=== PATIENT | male | born 1970 | race Caucasian/White ===

== ENCOUNTER 2018-02-17 19:11 | Emergency (ER) | payer MEDICAID, OTHER ==
[~2018-02-17] VITALS: Ht 180.3 cm; Wt 93.2 kg
[2018-02-17 19:27] VITALS: BP 164/92; PULSE 82; RESP 20; TEMP 98.2; O2SAT 99
--- NOTE | 2018-02-17 19:55 | RADRPT ---
EXAM DATE/TIME: 02/17/2018 19:38 [place] COMPARISON: No previous studies available for comparison. INDICATIONS : Cough. MEDICAL HISTORY : Hypertension. SURGICAL HISTORY : None. ENCOUNTER: Initial ACUITY: 1 day PAIN SCORE: 4/10 LOCATION: Bilateral chest FINDINGS: PA and lateral views of the chest demonstrate the lungs to be symmetrically aerated without evidence of mass, infiltrate or effusion. The cardiomediastinal contours are unremarkable. Osseous structure s are intact. CONCLUSION: No acute disease. Carlos Coburn MD on February 17, 2018 at 19:52 Board Certified Radiologist. This report was verified electronically.
[2018-02-17 20:35] VITALS: BP 180/92; PULSE 77; RESP 18; TEMP 98.4; O2SAT 99
--- NOTE | 2018-02-17 20:41 | PD ---
HPI Chief Complaint: Chest Pain Time Seen by Provider: 20:35 Travel History International Travel<30 days: No Contact w/Intl Traveler<30days: No Traveled to known affect area: No History of Present Illness HPI 47-year-old male presents to the emergency department for complaint of one-week of cough sore throat congestion and chest pain with cough. Patient recently traveled from [facility] "where everyone is sick". Patient denies any lower extremity pain or swelling. No prior history of cardiac disease or clotting disorder. Patient has been diagnosed in the past with hypertension but takes no antihypertensive medications. Patient does smoke cigarettes. Patient has no known history of diabetes. Patient states in November he had flu. Patient states cough is persistent and spastic in nature; at times he coughs so forcefully he feels like he might pass out but has had no syncope. Patient denies any phlegm production. Has had sinus pressure and drainage and recently started OTC Flonase. No prior history of bronchitis pneumonia or COPD. The patient rates his throat pain as severe 7/10 in intensity. Patient is taken no acetaminophen or ibuprofen products for pain management. Patient has used over- the-counter cough medication and cough drops such as Ricola drops. [facility] Past Medical History Narrative Medical Hypertension; tobacco use; nursing notes reviewed Diminished Hearing: No Hypertension: Yes Influenza Vaccination: No Past Surgical History Tonsillectomy: Yes Other Surgery: Yes (L middle/index finger amputation) Social History Alcohol Use: Yes (occiasionally) Tobacco Use: Yes Substance Use: No Allergies-Medications (Allergen,Severity, Reaction): Coded Allergies: No Known Drug Allergies (Verified Allergy, Unknown, 02/17/18) Reported Meds & Prescriptions Reported Meds & Active Scripts Active Norvasc (Amlodipine Besylate) 2.5 Mg Tab 2.5 Mg PO DAILY Ventolin Hfa 18 GM Inh (Albuterol Sulfate) 90 Mcg/Act Aer 2 Puff INH Q4-6H PRN Medrol Dosepak (Methylprednisolone) 4 Mg Dspk 4 Mg PO DIRECTED Per Pharmacist direction Zithromax Z-Dmitriy (Azithromycin) 250 Mg Dspk 250 Mg PO DIRECTED 500 MG (2 tabs) day 1, then 1 tab days 2-5. Review of Systems Except as stated in HPI: all other systems reviewed are Neg General / Constitutional: Positive: Chills, No: Fever HENT: Positive: Sore Throat, Congestion Cardiovascular: Positive: Chest Pain or Discomfort, No: Syncope Respiratory: Positive: Cough, Shortness of Breath, Wheezing Gastrointestinal: No: Vomiting, Abdominal Pain Genitourinary: No: Dysuria, Flank Pain Musculoskeletal: No: Myalgias, Arthralgias Skin: No Rash Neurologic: No: Weakness, Syncope Psychiatric: No: Anxiety Hematologic/Lymphatic: No: Lymph Node Enlargement Physical Exam Narrative GENERAL: Well-developed well-nourished male no acute distress or respiratory distress hypertensive SKIN: Warm and dry. HEAD: Normocephalic. EYES: No scleral icterus. No injection or drainage. ENT: Mucous membranes moist posterior pharyngeal erythema without edema; tympanic membranes no redness dullness or loss of landmarks NECK: Supple, trachea midline. No JVD or lymphadenopathy. No meningismus no nuchal rigidity CARDIOVASCULAR: Regular rate and rhythm without murmurs, gallops, or rubs. RESPIRATORY: Breath sounds equal bilaterally. No accessory muscle use. GASTROINTESTINAL: Abdomen soft, non-tender, nondistended. MUSCULOSKELETAL: No cyanosis, or edema. No calf tenderness no posterior cord negative Homans dorsalis pedis pulse 2+ to palpation bilaterally BACK: Nontender without obvious deformity. No CVA tenderness. Data Data Last Documented VS Vital Signs Date Time Temp Pulse Resp B/P (MAP) Pulse Ox O2 Delivery O2 Flow Rate FiO2 02/17/18 22:19 02/17/18 21:42 100 21 02/17/18 20:35 98.4 77 18 Room Air Orders Orders Electrocardiogram (02/17/18 19:29) Basic Metabolic Panel (Bmp) (02/17/18 19:29) Ckmb (Isoenzyme) Profile (02/17/18 19:29) Complete Blood Count With Diff (02/17/18 19:29) Magnesium (Mg) (02/17/18 19:29) Prothrombin Time / Inr (Pt) (02/17/18 19:29) Act Partial Throm Time (Ptt) (02/17/18 19:29) Troponin I (02/17/18 19:29) Chest, Pa & Lat (02/17/18 19:29) Group A Rapid Strep Screen (02/17/18 20:35) Albuterol-Ipratropium Neb (Duoneb Neb) (02/17/18 20:45) Aspirin Chew (Aspirin Chew) (02/17/18 20:45) ^ Saline Lock (02/17/18 20:35) Strep Culture (Group A) (02/17/18 20:45) CKMB (02/17/18 20:45) CKMB% (02/17/18 20:45) Ketorolac Inj (Toradol Inj) (02/17/18 22:00) Ed Discharge Order (02/17/18 22:07) Labs Laboratory Tests Test 02/17/18 20:45 White Blood Count 10.9 TH/MM3 Red Blood Count 5.01 MIL/MM3 Hemoglobin 14.5 GM/DL Hematocrit 43.3 % Mean Corpuscular Volume 86.4 FL Mean Corpuscular Hemoglobin 29.0 PG Mean Corpuscular Hemoglobin Concent 33.6 % Red Cell Distribution Width 13.2 % Platelet Count 252 TH/MM3 Mean Platelet Volume 8.6 FL Neutrophils (%) (Auto) 64.8 % Lymphocytes (%) (Auto) 23.8 % Monocytes (%) (Auto) 8.7 % Eosinophils (%) (Auto) 2.1 % Basophils (%) (Auto) 0.6 % Neutrophils # (Auto) 7.1 TH/MM3 Lymphocytes # (Auto) 2.6 TH/MM3 Monocytes # (Auto) 0.9 TH/MM3 Eosinophils # (Auto) 0.2 TH/MM3 Basophils # (Auto) 0.1 TH/MM3 CBC Comment DIFF FINAL Differential Comment Prothrombin Time 10.7 SEC Prothromb Time International Ratio 1.1 RATIO Activated Partial Thromboplast Time 28.0 SEC Blood Urea Nitrogen 19 MG/DL Creatinine 1.04 MG/DL Random Glucose 93 MG/DL Calcium Level 9.0 MG/DL Magnesium Level 2.1 MG/DL Sodium Level 138 MEQ/L Potassium Level 3.6 MEQ/L Chloride Level 103 MEQ/L Carbon Dioxide Level 26.4 MEQ/L Anion Gap 9 MEQ/L Estimat Glomerular Filtration Rate 76 ML/MIN Total Creatine Kinase 263 U/L Creatine Kinase MB 1.6 NG/ML Troponin I LESS THAN 0.02 NG/ML MDM Medical Decision Making Medical Screen Exam Complete: Yes Emergency Medical Condition: Yes Medical Record Reviewed: Yes Interpretation(s) EKG normal sinus rhythm rate 75 normal axis and intervals no acute ST elevation injury pattern or ectopy noted Last Impressions Chest X-Ray 02/17/181928 Signed Impressions: Service Date/Time: Saturday, February 17, 2018 19:38 - CONCLUSION: No acute disease. Carlos Coburn MD Last Impressions Chest X-Ray 02/17/181928 Signed Impressions: Service Date/Time: Saturday, February 17, 2018 19:38 - CONCLUSION: No acute disease. Carlos Coburn MD Vital Signs Date Time Temp Pulse Resp B/P (MAP) Pulse Ox O2 Delivery O2 Flow Rate FiO2 02/17/18 21:42 100 21 02/17/18 20:35 98.4 77 18 180/92 (121) 99 Room Air 02/17/18 20:30 88 18 99 Room Air 02/17/18 19:27 98.2 82 20 164/92 (116) 99 CBC & BMP Diagram 02/17/18 20:45 Calcium Level 9.0, Magnesium Level 2.1 CK: 263, not elevated CK-MB 1.6 not elevated; troponin less than 0.02, not elevated Differential Diagnosis Viral syndrome, pharyngitis, influenza, sinusitis, bronchitis, pneumonia, uncontrolled hypertension; also to consider ACS, PE Narrative Course EKG is sinus rhythm no acute ST elevation injury pattern or ectopy noted chest x -ray no lobar infiltrate noted; specimens collected and sent for resulting patient given DuoNeb updraft 1 Patient reports that he feels markedly improved after DuoNeb updraft 1 is aware that his strep test is negative and that values grossly within normal range; patient denies any pleuritic chest pain. Patient's had no hemoptysis. Patient states the pain is still 7/10 intensity. Patient given one-time dose of Toradol 30 mg IV; patient is stable for outpatient management. Patient will be given prescription for Norvasc for hypertension. Diagnosis Primary Impression: Acute bronchitis Qualified Codes: J20.9 - Acute bronchitis, unspecified Additional Impression: Hypertension Referrals: Primary Care Physician call for appointment Patient Instructions: General Instructions Additional Instructions: Increase fluid hydration Follow-up with primary care provider or clinic Complete course of antibiotic Use inhaler as needed for shortness of breath or for wheezing May take ibuprofen/Advil/Motrin 600 mg as often a result every 6 hours or up to maximum dose of 800 mg as often as every 8 hours as needed for pain associated inflammation or for fever 100.4F or greater avoid use of this medication while taking steroid taper May use acetaminophen/Tylenol every 4 hours for fever 100.4F or greater for minor pain Use warm salt water gargles lozenges or Chloraseptic spray for throat pain Return to the emergency department for any concerns or change in condition Take blood pressure medication as prescribed monitor blood pressure daily and follow-up with primary care provider regarding ongoing blood pressure management Med/Other Pt SpecificInfo: Prescription(s) given Scripts Amlodipine (Norvasc) 2.5 Mg Tab 2.5 MG PO DAILY for Blood Pressure Management, #30 TAB 0 Refills Prov: Nicci Márquez MD 02/17/18 Albuterol 18 GM Inh (Ventolin Hfa 18 GM Inh) 90 Mcg/Act Aer 2 PUFF INH Q4-6H Y for SHORTNESS OF BREATH, #1 INHALER 0 Refills Prov: Nicci Márquez MD 02/17/18 Methylprednisolone Dosepak (Medrol Dosepak) 4 Mg Dspk 4 MG PO DIRECTED, #1 DSPK 0 Refills Per Pharmacist direction Prov: Nicci Márquez MD 02/17/18 Azithromycin (Zithromax Z-Dmitriy) 250 Mg Dspk 250 MG PO DIRECTED for Infection, #1 DSPK 0 Refills 500 MG (2 tabs) day 1, then 1 tab days 2-5. Prov: Nicci Márquez MD 02/17/18 Disposition: 01 DISCHARGE HOME Condition: Stable Nicci Márquez MD Feb 17, 2018 20:41
[2018-02-17] MEDS ORDERED: RESP: ALBUTEROL 2.5 MG/IPRATROPIUM 0.5 MG NEB (SCH) NEB ONE (20:45)
[2018-02-17] MEDS ORDERED: ASPIRIN 81 MG CHEW TAB CHEW ONE (20:45)
[2018-02-17 21:27] LABS: AUTOMATED NEUTROPHIL # 7.1 TH/MM3 (1.8-7.7); BASOPHIL # 0.1 TH/MM3 (0-0.2); BASOPHIL % 0.6 % (0.0-2.0); EOSINOPHIL # 0.2 TH/MM3 (0-0.4); EOSINOPHIL % 2.1 % (0.0-4.0); HEMATOCRIT 43.3 % (39.0-51.0); HEMOGLOBIN 14.5 GM/DL (13.0-17.0); LYMPH % 23.8 % (9.0-44.0); LYMPHOCYTE # 2.6 TH/MM3 (1.0-4.8); MEAN CELL VOLUME 86.4 FL (80.0-100.0); MEAN CORPUSCULAR HGB CONC 33.6 % (32.0-36.0); MEAN PLATELET VOLUME 8.6 FL (7.0-11.0); MONO % 8.7 % (0.0-8.0); MONOCYTE # 0.9 TH/MM3 (0-0.9); NEUT % 64.8 % (16.0-70.0); PLATELET COUNT 252 TH/MM3 (150-450); RED BLOOD COUNT 5.01 MIL/MM3 (4.50-5.90); RED CELL DISTRIBUTION WIDTH 13.2 % (11.6-17.2); WHITE BLOOD COUNT 10.9 TH/MM3 (4.0-11.0)
[2018-02-17 21:40] LABS: BICARBONATE 26.4 MEQ/L (21.0-32.0); BLOOD UREA NITROGEN 19 MG/DL (7-18); CHLORIDE 103 MEQ/L (98-107); CREATININE 1.04 MG/DL (0.60-1.30); GLOMERULAR FILTRATION RATE 76 ML/MIN (>89); GLUCOSE,RANDOM 93 MG/DL (74-106); MAGNESIUM 2.1 MG/DL (1.5-2.5); SODIUM (NA) 138 MEQ/L (136-145)
[2018-02-17 21:42] VITALS: O2SAT 100
[2018-02-17 21:44] LABS: TROPONIN I LESS THAN 0.02 NG/ML (0.02-0.05)
[2018-02-17] MEDS ORDERED: KETOROLAC TROMETHAMINE 30 MG/ML (IVP) VIAL IV PUSH ONE (22:00)
[2018-02-17] MEDS ORDERED: NORV2.5T PO (22:04)
[2018-02-17] MEDS ORDERED: VENTAER INH (22:04)
[2018-02-17] MEDS ORDERED: ZITHTAB PO (22:04)
[2018-02-17] MEDS ORDERED: MEDR4PAK PO (22:04)
[2018-02-17 22:06] LABS: INTERNATIONAL NORMALIZED RATIO 1.1 RATIO; PROTHROMBIN TIME - PATIENT 10.7 SEC (9.8-11.6)
--- NOTE | 2018-02-18 22:44 | EKG ---
Date Performed: 02/17/2018 Time Performed: 19:54:23 PTAGE: 47 years EKG: Sinus rhythm NORMAL ECG NO PREVIOUS TRACING DOCTOR: Cuco Blandon Interpretating Date/Time 02/18/2018 22:43:03
== END 2018-02-17 22:20 | disposition home or self-care (01) ==
LOC: NEPC 19:11
DX: J20.9 Acute bronchitis, unspecified (principal); I10 Essential (primary) hypertension; F17.210 Nicotine dependence, cigarettes, uncomplicated; R07.9 Chest pain, unspecified; Z79.899 Other long term (current) drug therapy
CPT/HCPCS: 71046; 80048; 82550; 82552; 83735; 84484; 85025; 85610; 85730; 87081; 87880; 93005; 94664; 96374; 99285; J1885